=== PATIENT | male | born 1965 | race Caucasian/White ===

== ENCOUNTER 2017-03-21 07:15 | Day surgery (SDC) | payer OTHER ==
[2017-03-21] MEDS ORDERED: fentaNYL CITRATE/PF 100 MCG/2 ML AMP ONE ×2 (08:03→08:04)
[2017-03-21] MEDS ORDERED: MIDAZOLAM HCL 5 MG/5 ML VIAL ONE ×2 (08:04→08:05)
[2017-03-21] MEDS ORDERED: SIMETHICONE 40 MG/0.6 ML ML ONE (08:04)
[2017-03-21 13:33] VITALS: BP_SYST 120
== END 2017-03-21 11:10 | disposition home or self-care (01) ==
LOC: SMU 07:15 → SDS 07:15
PROVIDERS: ATTEND Internal Medicine
DX: Z12.11 Encounter for screening for malignant neoplasm of colon (principal); D12.2 Benign neoplasm of ascending colon; D12.5 Benign neoplasm of sigmoid colon; K57.30 Diverticulosis of large intestine without perforation or abscess without bleeding; J45.909 Unspecified asthma, uncomplicated
CPT/HCPCS: 45380; 88305; J2250; J3010

== ENCOUNTER 2023-01-22 06:21 | Day surgery (SDC) | payer OTHER ==
[~2023-01-22] VITALS: Ht 167.6 cm; Wt 73.9 kg
[2023-01-22 07:37] VITALS: O2SAT 98
[2023-01-22] MEDS ORDERED: SIMETHICONE 40 MG/0.6 ML ML ONE (07:45)
[2023-01-22] MEDS ORDERED: fentaNYL CITRATE/PF 100 MCG/2 ML AMP ONE (07:46)
[2023-01-22] MEDS ORDERED: MIDAZOLAM HCL 5 MG/5 ML VIAL ONE (07:46)
[2023-01-22 14:59] VITALS: BP_SYST 133; PULSE 63; RESP 11
== END 2023-01-22 08:55 | disposition home or self-care (01) ==
LOC: SDS 06:21 → SMU 06:23 → SDS 08:55
PROVIDERS: ATTEND Internal Medicine
DX: Z12.11 Encounter for screening for malignant neoplasm of colon (principal); D12.2 Benign neoplasm of ascending colon; Z86.010 Personal history of colon polyps; K64.8 Other hemorrhoids; K57.30 Diverticulosis of large intestine without perforation or abscess without bleeding; J45.909 Unspecified asthma, uncomplicated; E78.5 Hyperlipidemia, unspecified; Z79.899 Other long term (current) drug therapy; Z91.040 Latex allergy status
CPT/HCPCS: 45385; 88305; 99152; G0378; J2250; J3010